=== PATIENT | male | born 1985 | race Caucasian/White ===

== ENCOUNTER 2016-05-30 13:25 | Emergency (ER) | payer OTHER ==
[2016-05-30 13:30] VITALS: BP 131/77; PULSE 65; TEMP 98; BMI 31.1
--- NOTE | 2016-05-30 13:59 | PDOC ---
History of Present Illness - General Chief Complaint: Pain, Acute Stated Complaint: RIGHT ANKLE Time Seen by Provider: 05/30/16 13:45 - History of Present Illness Initial Comments: 05/30/16 13:58 30-year-old male with a negative past medical history He states he has sprained his right ankle, multiple times, and has a partial tear of one of the ligaments He states that his ankle is unstable and is very easy for him to twist or injure it Today he slipped on a crack, and sustained another inversion injury to his right ankle He is complaining of pain and swelling on the lateral malleolus into the proximal lateral fifth metatarsal He denies any pain in the medial malleolus He denies any knee pain He denies any numbness or tingling in his foot He denies any other injury Past History - Past Medical History Allergies/Adverse Reactions: Allergies Allergy/AdvReac Type Severity Reaction Status Date / Time No Known Allergies Allergy Verified 05/30/16 13:26 Home Medications: Ambulatory Orders NK [No Known Home Medication] 05/30/16 Other medical history: DENIES - Psycho/Social/Smoking Cessation Hx Anxiety: No Suicidal Ideation: No Smoking History: Former smoker Have you smoked in the past 12 months: No Information on smoking cessation initiated: No Hx Alcohol Use: Yes Drug/Substance Use Hx: Yes Substance Use Type: Alcohol, Marijuana *Physical Exam - Vital Signs Last Vital Signs Temp Pulse Resp BP Pulse Ox 98 F 65 16 131/77 100 05/30/16 13:26 05/30/16 13:26 05/30/16 13:26 05/30/16 13:26 05/30/16 13:26 - Physical Exam Comments: 05/30/16 14:02 Physical exam Patient is alert and answering questions Head is normocephalic and atraumatic Right lower extremity There is full range of motion of the right knee The Achilles tendon is intact Right ankle- There is no tenderness on the medial malleolus The lateral malleolus is swollen and tender into the base of the fifth metatarsal There is tenderness on internal rotation of the ankle There is no metatarsal tenderness anywhere else There is no other foot tenderness There is no heel tenderness The toes are warm with intact sensation The dorsalis pedis pulses intact ED Treatment Course - RADIOLOGY Radiology Studies Ordered: Category Date Time Status ANKLE & FOOT-RIGHT* [RAD] Stat Radiology 05/30/16 13:30 Ordered Medical Decision Making - Medical Decision Making 05/30/16 15:24 Most likely inversion sprain, will check x-rays Right foot and ankle series-NAD as read by me Impression-severe inversion sprain of the right ankle Buzz and crutches, orthopedic follow-up 05/30/16 16:39 Patient has his own orthopedic doctor who he will follow-up with-given a disc of x-rays *DC/Admit/Observation/Transfer Diagnosis at time of Disposition: Inversion sprain of right ankle - Discharge Dispostion Disposition: HOME Condition at time of disposition: Stable - Patient Instructions Printed Discharge Instructions: DI for Ankle Sprain, How to Use Crutches Additional Instructions: Buzz and crutches, elevate, ice packs off and on for the next 24-48 hours Tylenol or Motrin for pain You will initially started out nonweightbearing, then after 2-3 days may start partial weightbearing Please follow-up with your orthopedic doctor early next week Followup with your primary care physician in 24-48 hours Return immediately if you worsen in any way The x-ray reading is a preliminary reading, if there is any change when the radiologist reads the x-rays you will be called - Post Discharge Activity Work/School Note: Back to Work, Parent(s) Back to Work Note
[2016-05-30] MEDS ORDERED: SODIUM CHLORIDE 1,000 ML IV SCH (14:00)
[2016-05-30] MEDS ORDERED: IBUPROFEN 600 MG TABLET (FP) PO ONE ×2 (14:26→14:31)
== END 2016-05-30 15:31 | disposition home or self-care (01) ==
LOC: FER 13:25
DX: S93.491A Sprain of other ligament of right ankle, initial encounter (principal); X58.XXXA Exposure to other specified factors, initial encounter; Y93.9 Activity, unspecified; Y92.410 Unspecified street and highway as the place of occurrence of the external cause; Z87.891 Personal history of nicotine dependence
CPT/HCPCS: 73610-TC-RT; 73630-TC-RT; 99283-25